=== PATIENT | female | born 1990 | race Hispanic/Latino ===

== ENCOUNTER 2019-02-16 10:15 | Outpatient (CLI) | payer OTHER ==
--- NOTE | 2019-02-16 13:27 | ULT ---
OBSTETRICAL SONOGRAM: HISTORY: Second trimester gestation. evaluation. FINDINGS: The urinary bladder is well distended. The cervix is closed and 7.1 cm. A single intrauterine gestati on in breech presentation. Grade 0 placenta is anterior. No evidence of previa or obstruction. Amniot ic fluid is within normal limits. Three vessel cord shows a normal insertion. No gross intracranial a bnormalities are apparent. spine and kidneys intact as visualized. Four chamber heart shows mot ion at 133 beats per minute. Measurements are as follows: Biparietal diameter:25 weeks 2 days Head circumference: 25 weeks 2 days Abdominal circumference: 25 weeks 4 days Femur length: 25 weeks 0 days Estimated date of delivery based on today's sonogram is 05/31/2019. Hadlock: 16th percentile. IMPRESSION: Single viable intrauterine gestation. Estimated gestational age based on today's sonogram 25 weeks 1 day. No significant abnormalities demonstrated. POS: TPC
== END 2019-02-16 10:16 | disposition home or self-care (01) ==
LOC: SCSULT 10:15
PROVIDERS: ATTEND Nurse Practitioner
DX: O09.92 Supervision of high risk pregnancy, unspecified, second trimester (principal); Z3A.25 25 weeks gestation of pregnancy
CPT/HCPCS: 76805

== ENCOUNTER 2019-05-26 23:45 | Inpatient (IN) | payer OTHER, SELFPAY ==
[~2019-05-26 23:45] MED LIST: Lidocaine 2% MPF 10 ML AMP (For Epidural Use) ONE
[2019-05-27 00:58] LABS: Amnisure Internal Control QC ACCEPTABLE (ACCEPTABLE); Amnisure Test No Membranes Rupture (No Rupture)
[2019-05-27] MEDS ORDERED: hydrALAZINE 20 MG/ML VIAL SLOW IVP PRN ×3 (01:13→12:58)
[2019-05-27] MEDS ORDERED: Butorphanol Tartrate 1 MG/ML VIAL SLOW IVP PRN (04:05)
[2019-05-27] MEDS ORDERED: Ondansetron PF 4 MG/2 ML Vial IVP PRN ×3 (04:05→12:58)
[2019-05-27] MEDS ORDERED: Lidocaine 1% (PF) 30 ML VIAL SC PRN (04:05)
[2019-05-27] MEDS ORDERED: HYDROcodone/Acetaminophen 5/325 mg Tablet PO PRN (04:07)
[2019-05-27] MEDS ORDERED: Ibuprofen 800 MG TAB PO PRN (04:07)
[2019-05-27] MEDS ORDERED: NS / Oxytocin 40 units/1000ml 1,000 ML IV PRN (04:07)
[2019-05-27] MEDS ORDERED: Penicillin G Potassium 5 MILL.UNITS in Sodium Chloride 0.9% 100 ML IVPB SCH (04:15)
[2019-05-27] MEDS: Lactated Ringer's 1,000 ML IV SCH ×2 (04:34→06:04)
[2019-05-27 04:56] LABS: Hemoglobin 11.2 g/dL (12.0-16.0); Mean Corpuscular HGB CONC 32.1 g/dL (32.0-36.0); Mean Corpuscular Hemoglobin 24.9 pg (27.0-31.0); Mean Corpuscular Volume 77.5 fL (78.0-98.0); Mean Platelet Volume 9.5 fL (7.4-10.4); Platelet Count 206 thou/uL (130-400); RBC Distribution Width 15.2 % (11.5-14.5); Red Blood Cell (RBC) Count 4.52 mill/uL (4.20-5.40); White Blood Cell (WBC) Count 6.4 thou/uL (4.8-10.8)
[2019-05-27] MEDS ORDERED: Fentanyl 4 mcg/Bup 0.1% Cadd 100 ML ONE (05:04)
[2019-05-27 05:35] LABS: HBSAg Index 0.22 S/CO (0-0.99); Hep B Surf Ag Non-Reactive S/CO (NonReactive); Syphilis Antibody Nonreactive (Nonreactive); Syphilis Antibody Index 0.06 S/CO (<1.00 Non-Reactive)
[2019-05-27] MEDS ORDERED: Lactated Ringer's 500 ML IV PRN (06:11)
[2019-05-27] MEDS ORDERED: ePHEDrine/0.9% NaCl/PF SYRINGE 50 mg/10 ml SLOW IVP PRN (06:11)
[2019-05-27] MEDS ORDERED: Promethazine HCl 25 MG/ML VIAL IM PRN ×2 (06:11→12:58)
[2019-05-27] MEDS ORDERED: diphenhydrAMINE 50 MG/ML VIAL IVP PRN (06:11)
[2019-05-27] MEDS ORDERED: Acetaminophen 325 MG TAB PO PRN (06:11)
[2019-05-27] MEDS ORDERED: Naloxone HCl 0.4 mg/ml Vial IVP PRN ×2 (06:11)
[2019-05-27] MEDS ORDERED: Communication Order-Pharmacy FS SCH (06:15)
[2019-05-27] MEDS ORDERED: Fentanyl 4 mcg/Bupivacaine 0.1% Cassette 100 ML EPIDURAL SCH (06:15)
[2019-05-27 07:34] VITALS: BMI 34.3
[2019-05-27] MEDS: Penicillin G 2.5 MILL.units 2.5 MILL.UNITS in Premix Bag 1 BAG IVPB SCH (08:05)
--- NOTE | 2019-05-27 09:03 | ULT ---
LIMITED OB ULTRASOUND: DATE: 05/27/2019. PROVIDED CLINICAL HISTORY: Cramping pain. FINDINGS: A single live intrauterine gestation is documented in vertex presentation with heart rate of 128 b.p. m. documented. Amniotic fluid index is calculated at 11.2. The placenta is anteriorly located. IMPRESSION: Single live intrauterine gestation as described. POS: OFF
[2019-05-27] MEDS: NS / Oxytocin 40 units/1000ml 1,000 ML IV PRN ×2 (10:46→11:26)
[2019-05-27] MEDS ORDERED: NS / Oxytocin 40 units/1000ml 1,000 ML IV SCH (12:58)
[2019-05-27] MEDS ORDERED: Bisacodyl 10 MG SUPP PR PRN (12:58)
[2019-05-27] MEDS ORDERED: diphenhydrAMINE 25 MG CAP PO PRN (12:58)
[2019-05-27] MEDS ORDERED: Zolpidem Tartrate 5 MG TAB PO PRN (12:58)
[2019-05-27] MEDS ORDERED: Lanolin Ointment 7 GM TUBE TOP PRN (12:58)
[2019-05-27] MEDS ORDERED: Benzocaine-Menthol 82.5 ML CAN TOP PRN (12:58)
[2019-05-27] MEDS ORDERED: Milk Of Magnesia 30 ML UDCUP PO PRN (12:58)
[2019-05-27] MEDS ORDERED: Preparation H Ointment 28 GM TUBE PR PRN (12:58)
[2019-05-27] MEDS: HYDROcodone/Acetaminophen 5/325 mg Tablet PO PRN (14:16)
[2019-05-27] MEDS: Ibuprofen 800 MG TAB PO SCH ×2 (15:11→22:01)
[2019-05-27] MEDS: Docusate Calcium (SURFAK) 240 MG CAP PO SCH (22:02)
[2019-05-28] MEDS: Ibuprofen 800 MG TAB PO SCH ×3 (05:31→20:59)
[2019-05-28] MEDS: HYDROcodone/Acetaminophen 5/325 mg Tablet PO PRN ×4 (05:31→21:03)
--- NOTE | 2019-05-28 07:05 | PDOC.PP ---
Post Progress Note Post Day #: 1 Subjective: NAEO. Some mild cramping but doing well otherwise PO intake tolerated: yes Flatus: no Ambulation: yes Vital Signs (12 hours) Temp Pulse Resp BP Pulse Ox 05/28/19 05:25 97.8 F 62 18 104/64 05/27/19 23:30 97.5 F L 64 18 94/53 L 05/27/19 20:15 97.5 F L 60 18 96/54 L 99 Weight Weight 77.111 kg - Physical Examination General: NAD Cardiovascular: RRR Respiratory: non-labored breathing Abdominal: appropriately TTP Psychiatric: A&Ox3, normal affect Result Diagrams: 05/27/19 04:20 Additional Labs: Post Labs Blood Type O POSITIVE 05/27/19 04:20 Hep Bs Antigen Non-Reactive S/CO (NonReactive) 05/27/19 04:20 - Assessment/Plan 1. s/p -AVSS, no concerns -Doing well, pain controlled with current regimen -ready for d/c today -discussed f/u with Dr. Spaulding in 2 weeks
[2019-05-28] MEDS ORDERED: Ondansetron ODT 4 MG TAB SL PRN (08:01)
[2019-05-28] MEDS: Prenatal Vitamin 1 TAB PO SCH (09:08)
[2019-05-28] MEDS: Docusate Calcium (SURFAK) 240 MG CAP PO SCH ×2 (09:08→20:59)
[2019-05-28] MEDS ORDERED: Adacel (T-DAP) 0.5 ML SYRINGE IM ONE (12:58)
[2019-05-28 20:19] VITALS: TEMP 98
[2019-05-28] MEDS: Penicillin G 2.5 MILL.units 2.5 MILL.UNITS in Premix Bag 1 BAG IVPB SCH (20:20)
[2019-05-29] MEDS: Ibuprofen 800 MG TAB PO SCH ×2 (05:18→13:32)
[2019-05-29 08:45] VITALS: BP 105/62
[2019-05-29] MEDS: HYDROcodone/Acetaminophen 5/325 mg Tablet PO PRN ×2 (08:53→13:31)
[2019-05-29] MEDS: Docusate Calcium (SURFAK) 240 MG CAP PO SCH (08:53)
[2019-05-29] MEDS: Prenatal Vitamin 1 TAB PO SCH (08:53)
== END 2019-05-29 16:10 | disposition home or self-care (01) | DRG 807 ==
LOC: L&D/OP 23:45 → L&D 05-27 07:14 → 3SW 05-27 13:52
PROVIDERS: ADMIT Family Medicine; ATTEND Family Medicine
PROC: 10E0XZZ Delivery of Products of Conception, External Approach (ICD-10-PCS; principal; 2019-05-27)
PROC: 3E033VJ Introduction of Other Hormone into Peripheral Vein, Percutaneous Approach (ICD-10-PCS; 2019-05-27)
DX: O99.824 Streptococcus B carrier state complicating childbirth (principal); Z37.0 Single live birth; Z3A.40 40 weeks gestation of pregnancy
CPT/HCPCS: 36415; 51702; 76815; 84112; 85027; 86780; 86850; 86900; 86901; 87340; 87480; 87510; 87660; 99285; J2001; J2540; J3490